=== PATIENT | male | born 1975 | race African-American/Black ===

== ENCOUNTER 2019-02-07 12:18 | Emergency (ER) | payer OTHER ==
[~2019-02-07] VITALS: Ht 180.3 cm; Wt 95.3 kg
== END 2019-02-07 16:17 | disposition home or self-care (01) ==
LOC: ER 12:18
DX: S20.212A Contusion of left front wall of thorax, initial encounter (principal); S20.211A Contusion of right front wall of thorax, initial encounter; V49.9XXA Car occupant (driver) (passenger) injured in unspecified traffic accident, initial encounter; Y93.89 Activity, other specified; Y92.488 Other paved roadways as the place of occurrence of the external cause; Y99.8 Other external cause status